=== PATIENT | female | born 1965 | race Hispanic/Latino ===

== ENCOUNTER 2020-03-27 16:03 | Emergency (ER) | payer OTHER, SELFPAY ==
[2020-03-27] MEDS ORDERED: ALBUTEROL INHALER 90MCG/INH IH ONE (16:27)
[2020-03-27] MEDS ORDERED: LIDOCAINE HCL-MPF 1% 2ML VIAL ONE (16:27)
[2020-03-27] MEDS ORDERED: AZITHROMYCIN 250 MG TABLET PO ONE (16:27)
[2020-03-27] MEDS ORDERED: CEFTRIAXONE 1G VIAL ONE (16:27)
[2020-03-27] MEDS ORDERED: ACETAMINOPHEN WITH CODEINE 1 TAB TAB ONE (16:28)
== END 2020-03-27 17:00 | disposition home or self-care (01) ==
LOC: EDH 16:03
DX: U07.1 COVID-19 (principal); I10 Essential (primary) hypertension; J45.909 Unspecified asthma, uncomplicated; Z72.0 Tobacco use; Z91.041 Radiographic dye allergy status; Z79.899 Other long term (current) drug therapy
CPT/HCPCS: 71045; 96372; 99283; J0696; J3490

== ENCOUNTER → 2020-05-29 | Outpatient (CLI) | payer OTHER | END | disposition home or self-care (01) | LOC: RAH 15:44 | PROVIDERS: ATTEND Physician Assistant Medical | DX: Z13.6 Encounter for screening for cardiovascular disorders (principal) | CPT/HCPCS: 75571 ==